=== PATIENT | female | born 1970 | race Caucasian/White ===

== ENCOUNTER → 2017-08-24 | Outpatient (CLI) | payer SELFPAY | LOC: GMAL 10:48 | PROVIDERS: ATTEND Family Medicine | DX: N39.0 Urinary tract infection, site not specified (principal) ==

== ENCOUNTER → 2018-06-27 | Outpatient (CLI) | payer OTHER | LOC: LAB.O 13:24 | PROVIDERS: ATTEND Nurse Practitioner Family | DX: R07.9 Chest pain, unspecified (principal) ==

== ENCOUNTER 2018-12-04 10:14 | Emergency (ER) | payer OTHER ==
[2018-12-04] MEDS ORDERED: ASPIRIN TABLET 325 MG TAB PO ONE (10:26)
[2018-12-04] MEDS ORDERED: ALUM & MAG HYDROX-SIMETHICONE 30 ML, LIDOCAINE VISCOUS 2% 15 ML PO ONE ×2 (10:26)
[2018-12-04] MEDS ORDERED: LIDOCAINE HCL 2% (MOUTH-THROAT) 15 ML UD ONE (10:28)
[2018-12-04] MEDS ORDERED: ALUM & MAG HYDROX-SIMETHICONE 30 ML UD ONE (10:28)
--- NOTE | 2018-12-04 10:29 | ED.PDOC ---
History of Present Illness - General Chief Complaint: Chest Pain/NE Stated Complaint: chest pain Time Seen by Provider: 12/04/18 10:19 Source: patient Exam Limitations: no limitations - History of Present Illness Initial Comments: the patient is a 48-year-old female presenting to the emergency room secondary to chest pain that started about 20 hours ago, yesterday while she was [facility]. It is not made worse with movement or aerobic activity. No significant shortness of breath. No nausea or vomiting. Questionable low-grade fever. No previous chest pain. No previous cardiac history. She does take blood pressure medication. No syncope or near-syncope. No radiation. She reports that the pain is and has been a constant 7 out of 10. However she did sleep well last night without any difficulty. She does not appear to be any significant distress. She did report some palpitations yesterday. Timing/Duration: other Severity: moderate Improving Factors: nothing Worsening Factors: nothing Associated Symptoms: chest pain Allergies/Adverse Reactions: Allergies NO KNOWN ALLERGY Allergy (Verified 04/04/15 07:41) Home Medications: Ambulatory Orders Losartan Potassium & Hydrochlo [Losartan Potassium/Hydroc 100-12.5 mg] 1 tab PO DAILY 12/04/18 Review of Systems - Review of Systems Constitutional: States: no symptoms reported EENTM: States: no symptoms reported Respiratory: States: no symptoms reported Cardiology: States: chest pain, palpitations Gastrointestinal/Abdominal: States: no symptoms reported Genitourinary: States: no symptoms reported Musculoskeletal: States: no symptoms reported Skin: States: no symptoms reported Neurological: States: no symptoms reported Endocrine: States: no symptoms reported Hematologic/Lymphatic: States: no symptoms reported All other Systems: No Change from Baseline Past Medical History (General) - Patient Medical History Hx Stroke: No Hx Cardiac Disorders: No Hx Congestive Heart Failure: No Hx Hypertension: Yes Hx Diabetes: No Hx MRSA: No Surgical History: cholecystectomy, other - Vaccination History Hx Influenza Vaccination: No - Social History Hx Tobacco Use: No Family Medical History - Family History Father Living Status: Still Living Hx Cardiac Disease: Yes Hx Family Diabetes: Yes Physical Exam - Physical Exam General Appearance: Alert, Comfortable, No apparent distress Eye Exam: bilateral normal Ears, Nose, Throat: hearing grossly normal, normal ENT inspection Neck: full range of motion, supple Respiratory: lungs clear, normal breath sounds, no respiratory distress, no accessory muscle use Cardiovascular/Chest: normal peripheral pulses, regular rate, rhythm, no edema Peripheral Pulses: radial,right: 2+, radial,left: 2+ Gastrointestinal/Abdominal: non tender, soft Rectal Exam: deferred Back Exam: no CVA tenderness, no vertebral tenderness Extremity: non-tender, normal inspection, no pedal edema, normal capillary refill 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 The patient has multiple cardiac risk factors including hypertension, obesity and a very strong cardiac family history. Nitroglycerin, morphine, GI cocktail, potassium have all failed to improve the chest discomfort. She did have significant hypokalemia but has since received 2 large doses of potassium which again has failed to improve the symptoms. No significant arrhythmia has been noted here. She is receiving a dose of aspirin and Lovenox. She is receiving a dose of Rocephin for urinary tract infection. The patient will be transferred to [facility] for cardiology evaluation as I cannot say with any certainty that this is not cardiac in origin. She will need a repeat potassium level along with repeat enzymes. Consideration could be given to a CRP and ESR as well at the next blood draw. Transferring for specialty care and higher level of care. Acceptance of transfer is appreciated. noman sol [id number] - Results/Orders Results/Orders: chest x-ray shows no acute pathology. See details in the report. EKG shows normal sinus rhythm at 68 bpm. She has scattered inverted P waves. No previous EKG for comparison. She does have slow R-wave progression in anterior leads. No wandering baseline. No scattered ST segment changes consistent with ischemia or inflammatory conditions. Normal QT interval. Normal axis. Overall borderline low voltage. Laboratory Tests 12/04/18 12/04/18 12/04/18 10:40 10:40 10:40 WBC 8.7 RBC 4.02 L Hgb 12.1 Hct 35.8 L MCV 89.0 MCH 30.1 MCHC 33.8 RDW 13.4 Plt Count 270 MPV 8.8 Absolute Neuts (auto) 6.40 Absolute Lymphs (auto) 1.60 Absolute Monos (auto) 0.50 Absolute Eos (auto) 0.10 Absolute Basos (auto) 0.00 Neutrophils % 73.3 Lymphocytes % 18.5 L Monocytes % 6.3 Eosinophils % 1.4 Basophils % 0.5 PT 10.9 INR 1.09 PTT (SP) 29.9 D-Dimer, Quantitative 0.26 Sodium 137 Potassium 2.9 L Chloride 99 L Carbon Dioxide 22 Anion Gap 18.9 H BUN 9 Creatinine 0.74 BUN/Creatinine Ratio 12.2 Random Glucose 130 H Serum Osmolality 274.3 L Calcium 8.7 Magnesium 2.0 Total Bilirubin 0.7 AST 25 ALT 26 Alkaline Phosphatase 54 Creatine Kinase 106 CK-MB (CK-2) 0.6 CK-MB (CK-2) % Not Reportable Troponin I 0.00 B-Natriuretic Peptide 5.8 Serum Total Protein 7.7 Albumin 3.9 Globulin 3.8 H Albumin/Globulin Ratio 1.0 L TSH 0.83 Urine Color Urine Appearance Urine pH Ur Specific Eldena Urine Protein Urine Glucose (UA) Urine Ketones Urine Blood Urine Nitrite Urine Bilirubin Urine Urobilinogen Ur Leukocyte Esterase Urine RBC Urine WBC Ur Epithelial Cells Amorphous Sediment Urine Bacteria Urine HCG, Qual 12/04/18 12/04/18 12/04/18 11:02 11:16 13:35 WBC RBC Hgb Hct MCV MCH MCHC RDW Plt Count MPV Absolute Neuts (auto) Absolute Lymphs (auto) Absolute Monos (auto) Absolute Eos (auto) Absolute Basos (auto) Neutrophils % Lymphocytes % Monocytes % Eosinophils % Basophils % PT INR PTT (SP) D-Dimer, Quantitative Sodium Potassium Chloride Carbon Dioxide Anion Gap BUN Creatinine BUN/Creatinine Ratio Random Glucose Serum Osmolality Calcium Magnesium Total Bilirubin AST ALT Alkaline Phosphatase Creatine Kinase 110 CK-MB (CK-2) 0.6 CK-MB (CK-2) % Not Reportable Troponin I < 0.02 B-Natriuretic Peptide Serum Total Protein Albumin Globulin Albumin/Globulin Ratio TSH Urine Color Yellow Urine Appearance Clear Urine pH 6.0 Ur Specific Eldena 1.015 Urine Protein Negative Urine Glucose (UA) Negative Urine Ketones Negative Urine Blood Trace-lysed H Urine Nitrite Negative Urine Bilirubin Negative Urine Urobilinogen 0.2 Ur Leukocyte Esterase Moderate H Urine RBC 0-1 Urine WBC >50 H Ur Epithelial Cells 20-30 Amorphous Sediment 1+ Urine Bacteria 1+ Urine HCG, Qual Negative Departure - Departure Clinical Impression: Hypokalemia, Cystitis Chest pain Qualifiers: Chest pain type: unspecified Qualified Code(s): R07.9 - Chest pain, unspecified Disposition: Transfer to Hospital Departure Forms: ED Discharge - Pt. Copy, Patient Portal Self Enrollment Instructions: DI for Chest Pain Referrals: Timothy Chaney III, MD [Primary Care Provider] - 1-2 Weeks Home Medications: Ambulatory Orders Losartan Potassium & Hydrochlo [Losartan Potassium/Hydroc 100-12.5 mg] 1 tab PO DAILY 12/04/18 Transfer to Outside Facility - Transfer Information Decision to Transfer Date: 12/04/18 Decision to Transfer Time: 14:37 Reason for Transfer: required specialist not available Accepting Provider:: dr adams Accepting Facility: [facility]
--- NOTE | 2018-12-04 11:04 | RAD ---
EXAM DESCRIPTION: Chest,2 Views CLINICAL HISTORY: 48 years Female, chest pain 20 hours COMPARISON: 06/25/2018 FINDINGS: Heart size and pulmonary vessels are within normal limits. There is no pneumothorax or pleural effusion. The lungs are clear bilaterally. The soft tissues are unremarkable. No acute osseous findings. Surgical clips overlie the left neck. IMPRESSION: No acute cardiopulmonary abnormality. Electronically signed by: Tom Dorado MD 12/04/2018 11:02 AM CDT
[2018-12-04] MEDS ORDERED: POTASSIUM CHLORIDE ELIXIR 20 MEQ/15 ML UD PO ONE ×2 (11:18→14:22)
[2018-12-04] MEDS ORDERED: cefTRIAXone SODIUM 1 GM in SODIUM CHL 0.9% 50ML MIN-BAG+ 50 ML IVPB ONE (11:41)
[2018-12-04] MEDS ORDERED: cefTRIAXone SODIUM 1 GM VIAL ONE (11:43)
[2018-12-04] MEDS ORDERED: SODIUM CHL 0.9% 50ML MIN-BAG+ 50 ML IVPB ONE (11:43)
[2018-12-04] MEDS ORDERED: NITROGLYCERIN 0.4 MG 25 EA TAB SL ONE (13:52)
[2018-12-04] MEDS ORDERED: MORPHINE SULFATE INJ 10 MG/ML VIAL IV ONE (14:21)
[2018-12-04] MEDS ORDERED: ENOXAPARIN SODIUM 100 MG/ML SYG SUBCU ONE (14:40)
[2018-12-04 15:18] VITALS: BP 110/65; O2SAT 98
[2018-12-04 19:29] VITALS: TEMP 98.5
== END 2018-12-04 15:45 | disposition short-term general hospital (02) ==
LOC: ER 10:14
DX: R07.9 Chest pain, unspecified (principal); N30.90 Cystitis, unspecified without hematuria; E87.6 Hypokalemia; R00.2 Palpitations; I10 Essential (primary) hypertension; E66.9 Obesity, unspecified; Z79.899 Other long term (current) drug therapy; Z82.49 Family history of ischemic heart disease and other diseases of the circulatory system; Z68.37 Body mass index [BMI] 37.0-37.9, adult
CPT/HCPCS: 36415; 71046; 80053; 81001; 81025; 82550; 82553; 83735; 83880; 84443; 84484; 85025; 85379; 85610; 85730; 87086; 93005; J0696; J1650; J2270; J7050

== ENCOUNTER → 2018-12-12 | Outpatient (CLI) | payer OTHER | LOC: GMAL 16:36 | PROVIDERS: ATTEND Family Medicine | DX: D51.8 Other vitamin B12 deficiency anemias (principal); D50.8 Other iron deficiency anemias; R53.82 Chronic fatigue, unspecified ==

== ENCOUNTER 2018-12-29 10:07 | Emergency (ER) | payer OTHER ==
--- NOTE | 2018-12-29 10:40 | ED.PDOC ---
History of Present Illness - General Chief Complaint: Respiratory Problem Stated Complaint: shortness of breath Time Seen by Provider: 12/29/18 10:36 - History of Present Illness Initial Comments: c/o having sob , more on exertion with chest tightness since this morning , no chest pain or wheezing Timing/Duration: 1-3 hours Severity: mild Improving Factors: nothing Worsening Factors: nothing Associated Symptoms: shortness of breath Allergies/Adverse Reactions: Allergies NO KNOWN ALLERGY Allergy (Verified 04/04/15 07:41) Home Medications: Ambulatory Orders Escitalopram [Lexapro] 10 mg PO DAILY 12/29/18 Furosemide Tab [Lasix] 20 mg PO BID #10 tab 12/29/18 Potassium Chloride [K-Tab] 10 meq PO DAILY 12/29/18 Telmisartan 80 mg PO DAILY 12/29/18 levoFLOXacin [Levaquin] 500 mg PO DAILY #10 tab 12/29/18 Review of Systems - Review of Systems Constitutional: States: no symptoms reported EENTM: States: no symptoms reported Respiratory: States: short of breath Cardiology: States: no symptoms reported Gastrointestinal/Abdominal: States: no symptoms reported Genitourinary: States: no symptoms reported Musculoskeletal: States: no symptoms reported Skin: States: no symptoms reported Neurological: States: no symptoms reported Endocrine: States: no symptoms reported Hematologic/Lymphatic: States: no symptoms reported All other Systems: Reviewed and Negative Past Medical History (General) - Patient Medical History Hx Stroke: No Hx Cardiac Disorders: No Hx Congestive Heart Failure: No Hx Hypertension: Yes Hx Diabetes: No Hx MRSA: No Surgical History: cholecystectomy - Vaccination History Hx Influenza Vaccination: Yes - Social History Hx Tobacco Use: Yes Family Medical History - Family History Father Living Status: Still Living Hx Cardiac Disease: Yes Hx Family Diabetes: Yes Physical Exam - Physical Exam General Appearance: Alert, Comfortable Eye Exam: bilateral normal Ears, Nose, Throat: hearing grossly normal, normal ENT inspection Neck: full range of motion, supple, normal inspection Cardiovascular/Chest: regular rate, rhythm, no edema, no gallop, no JVD, no murmur Back Exam: normal inspection, no CVA tenderness, no vertebral tenderness Extremity: normal range of motion, non-tender, normal inspection, no pedal edema Neurologic: no motor/sensory deficits, alert, normal mood/affect, oriented x 3 Skin Exam: normal color Lymphatic: no adenopathy Progress - Progress Progress: 12/29/18 15:34 Case discuss with hospitalist for the admission and further cardiac work up but as pt is currently asymptomatic and not desaturating on walking also and feels better after giving lasix , will discharge the pt home and follow up with cardiology - Results/Orders Results/Orders: 12/29/18 10:42 Sodium Chloride 0.9% (Flush) [Saline Flush Syringe] 10 ml IV PRN PRN EKG Stat Pulse Ox Stat 12/29/18 14:54 CARDIAC PANEL,ER Stat Laboratory Results WBC 7.5 K/mm3 (4.8-10.8) 12/29/18 10:54 RBC 3.66 M/mm3 (4.20-5.40) L 12/29/18 10:54 Hgb 10.9 gm/dL (12.0-16.0) L 12/29/18 10:54 Hct 33.1 % (36.0-47.0) L 12/29/18 10:54 MCV 90.4 fl (81.0-99.0) 12/29/18 10:54 MCH 29.8 pg (27.0-31.0) 12/29/18 10:54 MCHC 33.0 g/dL (33.0-37.0) 12/29/18 10:54 RDW 14.0 % (11.5-14.5) 12/29/18 10:54 Plt Count 247 K/mm3 (130-400) 12/29/18 10:54 MPV 9.1 fl (7.40-10.4) 12/29/18 10:54 Absolute Neuts (auto) 5.20 K/uL (1.8-6.8) 12/29/18 10:54 Absolute Lymphs (auto) 1.50 K/uL (1.0-3.4) 12/29/18 10:54 Absolute Monos (auto) 0.60 K/uL (0.2-0.8) 12/29/18 10:54 Absolute Eos (auto) 0.20 K/uL (0.0-0.4) 12/29/18 10:54 Absolute Basos (auto) 0.00 K/uL (0.0-0.1) 12/29/18 10:54 Neutrophils % 69.5 % (42.0-78.0) 12/29/18 10:54 Lymphocytes % 19.3 % (20.0-50.0) L 12/29/18 10:54 Monocytes % 7.8 % (2.0-9.0) 12/29/18 10:54 Eosinophils % 2.8 % (1.0-5.0) 12/29/18 10:54 Basophils % 0.6 % (0.0-2.0) 12/29/18 10:54 PT 11.4 SECONDS (9.0-10.9) H 12/29/18 10:54 INR 1.14 (0.9-1.15) 12/29/18 10:54 PTT (SP) 28.0 SECONDS (21.8-31.6) 12/29/18 10:54 D-Dimer, Quantitative 0.84 mg/L FEU (0-0.49) H* 12/29/18 10:54 Sodium 139 mmol/L (135-145) 12/29/18 10:54 Potassium 3.5 mmol/L (3.6-5.0) L 12/29/18 10:54 Chloride 104 mmol/L (101-111) 12/29/18 10:54 Carbon Dioxide 24 mmol/L (21-31) 12/29/18 10:54 Anion Gap 14.5 (12-18) 12/29/18 10:54 BUN 9 mg/dL (7-18) 12/29/18 10:54 Creatinine 0.80 mg/dL (0.6-1.3) 12/29/18 10:54 BUN/Creatinine Ratio 11.3 (10-20) 12/29/18 10:54 Random Glucose 105 mg/dL (70-105) 12/29/18 10:54 Serum Osmolality 276.6 mOsm/L (275-295) 12/29/18 10:54 Calcium 8.6 mg/dL (8.4-10.2) 12/29/18 10:54 Magnesium 1.9 mg/dL (1.8-2.5) 12/29/18 10:54 Total Bilirubin 0.5 mg/dL (0.2-1.0) 12/29/18 10:54 Direct Bilirubin 0.2 mg/dL (0-0.2) 12/29/18 10:54 Indirect Bilirubin 0.3 mg/dL (0.2-0.8) 12/29/18 10:54 AST 23 IU/L (10-42) 12/29/18 10:54 ALT 42 IU/L (10-60) 12/29/18 10:54 Alkaline Phosphatase 62 IU/L (42-121) 12/29/18 10:54 Creatine Kinase 85 IU/L (26-140) 12/29/18 10:54 CK-MB (CK-2) 0.6 ng/mL (0.0-4.4) 12/29/18 10:54 CK-MB (CK-2) % Not Reportable 12/29/18 10:54 Troponin I < 0.02 ng/mL (0.01-0.05) 12/29/18 15:04 B-Natriuretic Peptide 71.9 pg/ml (0-100) 12/29/18 15:04 Serum Total Protein 7.2 gm/dL (6.4-8.2) 12/29/18 10:54 Albumin 3.7 g/dl (3.2-5.5) 12/29/18 10:54 - EKG/XRAY/CT EKG: Sinus Departure - Departure Clinical Impression: Congestive cardiac failure, Pleural effusion, Pulmonary edema, SOB (shortness of breath) Disposition: Discharge to Home or Self Care Departure Forms: ED Discharge - Pt. Copy, Patient Portal Self Enrollment Referrals: Timothy Chaney III, MD [Primary Care Provider] - 1-2 Weeks Prescriptions: Furosemide Tab [Lasix] 20 mg PO BID #10 tab levoFLOXacin [Levaquin] 500 mg PO DAILY #10 tab Home Medications: Ambulatory Orders Escitalopram [Lexapro] 10 mg PO DAILY 12/29/18 Furosemide Tab [Lasix] 20 mg PO BID #10 tab 12/29/18 Potassium Chloride [K-Tab] 10 meq PO DAILY 12/29/18 Telmisartan 80 mg PO DAILY 12/29/18 levoFLOXacin [Levaquin] 500 mg PO DAILY #10 tab 12/29/18 Additional Instructions: Follow up with PCP in 1-2 days Refer to cardiology
[2018-12-29] MEDS ORDERED: SODIUM CHLORIDE 0.9% (FLUSH) 10 ML SYG IV PRN (10:42)
[2018-12-29] MEDS ORDERED: IPRATROPIUM/ALBUTEROL 3 ML VIAL NEB ONE ×2 (10:52→12:52)
--- NOTE | 2018-12-29 13:20 | CT ---
PROCEDURE: CT Angiography Chest With Intravenous Contrast CLINICAL INDICATION: The patient is 48 years years old, Female; sob TECHNIQUE: Axial computed tomographic angiography images of the chest with intravenous contrast. Sagittal and coronal reformatted images were created and reviewed. This CT exam was performed using one or more of the following dose reduction techniques: automated exposure control, adjustment of the mA and/or kV according to patient size, and/or use of iterative reconstruction technique. MIP reconstructed images were created and reviewed. COMPARISON: No relevant prior studies available. FINDINGS: PULMONARY ARTERIES: Evaluation of the pulmonary arterial vessels demonstrates no CT evidence of acute pulmonary embolus. There is no evidence of right to left interventricular septal bowing. AORTA: No evidence of aortic aneurysm or dissection. LUNGS: There are diffuse groundglass opacities bilaterally which may indicate pulmonary edema. In conjunction with pleural effusions, findings are concerning for fluid overload/congestive heart failure. There is a 2 mm noncalcified nodule in the right middle lobe (series CT 2, image 67) Fleischner Society Guidelines (MacMahon, et al. Radiology 2017; 284(1):228-43) suggest the following. For low-risk patients, no follow-up is necessary. For high-risk patients (smoking history or other known risk factors) an optional chest CT at 12 months could be performed. There is patchy subsegmental atelectasis. PLEURAL SPACE: There are bilateral simple pleural effusions which layer to the apices with a dependent interpleural distance of up to 3.5 cm AP on the right and up to 3.2 cm AP on the left with associated adjacent compressive atelectasis. HEART: unremarkable No cardiomegaly. No significant pericardial effusion. No evidence of RV dysfunction. THYROID: A tiny hypodensity in the left lobe of the thyroid gland requires no follow-up. BONES/JOINTS: There are diffuse enthesopathic changes, including a rolling pattern of ossification in the spine, consistent with diffuse idiopathic skeletal hyperostosis (DISH). SOFT TISSUES: Unremarkable. LYMPH NODES: Unremarkable. No enlarged hilar, mediastinal, or axillary lymph nodes. SPLEEN: The spleen is enlarged, measuring 13.2 cm. IMPRESSION: 1. No evidence of acute pulmonary emboli. 2. Congestive heart failure with moderate bilateral pleural effusions with groundglass opacification in the lungs likely reflecting pulmonary edema. Infection is not excluded. 3. Mild splenomegaly probably due to congestive heart failure. Other differential. First image considerations include portal hypertension, infectious/inflammatory conditions, and hematologic diseases such as anemias and extra medullary hematopoiesis. Neoplasia, storage diseases and sequestration also in the differential but much less likely. Portal or splenic vein thrombosis also in the differential, although not evaluated on this study of the CT chest. Electronically signed by: Eliza Pearson MD 12/29/2018 1:18 PM ADMITTING COUNSELOR
--- NOTE | 2018-12-29 13:22 | RAD ---
EXAM DESCRIPTION: Chest,1 View CLINICAL HISTORY: 48 years Female sob COMPARISON: Two-view chest dated 12/04/2018 TECHNIQUE: Portable AP view of the chest is obtained. FINDINGS IN THE CHEST: Heart: Allowing for magnification factors related to AP portable technique and body habitus, the heart is mildly enlarged. Vasculature: [] There is no evidence of aortic aneurysm or acute findings. There is central pulmonary vascular congestion. [] Mediastinum: No evidence of mass or adenopathy. Lungs: Groundglass opacification in the right lung and left lower lung probably reflects pulmonary edema in conjunction with pleural effusions and cardiomegaly. Layering pleural fluid could also produce this appearance. Infection is not excluded. Pleura: There is blunting of the bilateral costophrenic angles suggesting bilateral pleural effusions. There are no pneumothoraces. Osseous structures: No evidence of acute fracture or other significant osseous abnormalities. There are diffuse enthesopathic changes, including a rolling pattern of ossification in the spine, consistent with diffuse idiopathic skeletal hyperostosis (DISH). [] Tubes and catheters: None Chest wall: Unremarkable. Visualized Abdomen: Unremarkable. IMPRESSION: Suspect congestive heart failure. Groundglass opacification in the right lung and left lower lung probably reflects pulmonary edema in conjunction with pleural effusions and cardiomegaly. Infection is not excluded. Remainder of findings as described above. Electronically signed by: Eliza Pearson MD 12/29/2018 1:20 PM [employer]ENTICE
[2018-12-29] MEDS ORDERED: FUROSEMIDE INJ 40 MG/4 ML VIAL IV ONE (14:12)
[2018-12-29 15:47] VITALS: BP 160/71; TEMP 97.8; O2SAT 97
== END 2018-12-29 15:48 | disposition home or self-care (01) ==
LOC: ER 10:07
DX: I50.9 Heart failure, unspecified (principal); I50.1 Left ventricular failure, unspecified; I11.0 Hypertensive heart disease with heart failure; Z87.891 Personal history of nicotine dependence; Z79.899 Other long term (current) drug therapy
CPT/HCPCS: 36415; 71045; 71275; 80048; 80076; 82550; 82553; 83880; 84484; 85025; 85379; 85610; 85730; 93005; 94640; 94760; J1940; J7620

== ENCOUNTER → 2019-01-14 | Outpatient (CLI) | payer OTHER | LOC: GMAL 11:38 | PROVIDERS: ATTEND Family Medicine | DX: D50.8 Other iron deficiency anemias (principal); R53.82 Chronic fatigue, unspecified; I10 Essential (primary) hypertension; I50.89 Other heart failure; Z79.899 Other long term (current) drug therapy ==

== ENCOUNTER 2019-03-16 12:47 | Emergency (ER) | payer OTHER ==
[2019-03-16] MEDS ORDERED: SODIUM CHLORIDE 0.9% (FLUSH) 10 ML SYG IV PRN (12:48)
--- NOTE | 2019-03-16 13:22 | RAD ---
EXAM DESCRIPTION: XR Chest,1 View CLINICAL HISTORY: 48 years Female, sob COMPARISON: December 29, 2018. FINDINGS: Heart size appears borderline, although accentuated by technique. Possible minimal uncoiling of the thoracic aorta. The lungs appear essentially clear, with improvement in the apparent congestive changes and small pleural effusions since last exam. No obvious pneumothorax is identified on this upright portable film. No acute regional bony changes are identified. There are small metallic clips in the left lower neck. IMPRESSION: No radiographic evidence of acute cardiopulmonary disease. Improvement since last exam. Electronically signed by: Omar Almeida MD 03/16/2019 1:20 PM [facility]
[2019-03-16] MEDS ORDERED: MORPHINE SULFATE INJ 10 MG/ML VIAL IV ONE (14:47)
[2019-03-16] MEDS ORDERED: ASPIRIN TABLET 325 MG TAB PO ONE (14:48)
[2019-03-16] MEDS ORDERED: FAMOTIDINE IV PREMIX 20 MG in PREMIX BAG 1 BAG IVPB ONE (15:05)
[2019-03-16] MEDS ORDERED: FAMOTIDINE IV PREMIX 50 ML IVPB ONE (15:15)
[2019-03-16] MEDS ORDERED: DICYCLOMINE HCL INJ 20 MG/2 ML AMP IM ONE (15:49)
[2019-03-16] MEDS ORDERED: ONDANSETRON INJ 4 MG/2 ML VIAL IV ONE (15:50)
[2019-03-16] MEDS ORDERED: PANTOPRAZOLE SODIUM IV 40 MG VIAL IV ONE (15:59)
--- NOTE | 2019-03-16 16:20 | ED.PDOC ---
History of Present Illness - General Chief Complaint: Chest Pain/VA Stated Complaint: Chest discomfort Time Seen by Provider: 03/16/19 12:48 - History of Present Illness Initial Comments: c/o having sub sternal chest pain for few hours 7/10 pressure like radiating to the back and L arm , no nausea or vomiting or , dizziness or sob Timing/Duration: 4-6 hours Improving Factors: nothing Worsening Factors: nothing Associated Symptoms: chest pain Allergies/Adverse Reactions: Allergies NO KNOWN ALLERGY Allergy (Verified 04/04/15 07:41) Home Medications: Ambulatory Orders Escitalopram [Lexapro] 10 mg PO DAILY 12/29/18 Furosemide Tab [Lasix] 20 mg PO BID #10 tab 12/29/18 Potassium Chloride [K-Tab] 10 meq PO DAILY 12/29/18 RX: Telmisartan 80 mg PO DAILY 12/29/18 Review of Systems - Review of Systems Constitutional: States: no symptoms reported EENTM: States: no symptoms reported Respiratory: States: no symptoms reported Cardiology: States: no symptoms reported, see HPI Gastrointestinal/Abdominal: States: no symptoms reported Genitourinary: States: see HPI Musculoskeletal: States: no symptoms reported Skin: States: no symptoms reported Neurological: States: no symptoms reported Past Medical History (General) - Patient Medical History Hx Stroke: No Hx Cardiac Disorders: No Hx Congestive Heart Failure: Yes Hx Hypertension: Yes Hx Diabetes: No Hx MRSA: No Surgical History: cholecystectomy - Vaccination History Hx Influenza Vaccination: Yes - 2018 Hx Pneumococcal Vaccination: No - Social History Hx Tobacco Use: Yes - Quit 2014 Hx Alcohol Use: No Family Medical History - Family History Father Living Status: Still Living Hx Cardiac Disease: Yes Hx Family Diabetes: Yes Physical Exam - Physical Exam General Appearance: Alert Ears, Nose, Throat: hearing grossly normal, normal ENT inspection Neck: non-tender, full range of motion, supple Respiratory: lungs clear, normal breath sounds, no respiratory distress, no accessory muscle use Cardiovascular/Chest: regular rate, rhythm, no edema, no gallop, no JVD Gastrointestinal/Abdominal: non tender, soft Back Exam: normal inspection Extremity: normal inspection Neurologic: outbound call center representative II-XII nml as tested, no motor/sensory deficits, alert, normal mood/affect, oriented x 3 Progress - Progress Progress: 03/16/19 16:30 During the stay in the ER pt developed epigastric pain associated with nausea - Results/Orders Results/Orders: Case d/w urologist Dr Kraft and he says to discharge the pt and follow up tomorrow in the clinic at 1 o clock 03/16/19 12:48 IV Care:Saline Lock per Protoc QSHIFT Telemetry ONCE Sodium Chloride 0.9% (Flush) [Saline Flush Syringe] 3 ml IV PRN PRN Oxygen Stat 03/16/19 13:00 EKG STAT 03/16/19 15:04 EKG Assessment ONCE 03/16/19 15:15 EKG STAT 03/17/19 09:00 Pulse Ox Daily Laboratory Results WBC 8.0 K/mm3 (4.8-10.8) 03/16/19 12:55 RBC 3.86 M/mm3 (4.20-5.40) L 03/16/19 12:55 Hgb 11.6 gm/dL (12.0-16.0) L 03/16/19 12:55 Hct 34.4 % (36.0-47.0) L 03/16/19 12:55 MCV 89.1 fl (81.0-99.0) 03/16/19 12:55 MCH 29.9 pg (27.0-31.0) 03/16/19 12:55 MCHC 33.6 g/dL (33.0-37.0) 03/16/19 12:55 RDW 14.3 % (11.5-14.5) 03/16/19 12:55 Plt Count 269 K/mm3 (130-400) 03/16/19 12:55 MPV 9.4 fl (7.40-10.4) 03/16/19 12:55 Absolute Neuts (auto) 5.10 K/uL (1.8-6.8) 03/16/19 12:55 Absolute Lymphs (auto) 2.10 K/uL (1.0-3.4) 03/16/19 12:55 Absolute Monos (auto) 0.50 K/uL (0.2-0.8) 03/16/19 12:55 Absolute Eos (auto) 0.20 K/uL (0.0-0.4) 03/16/19 12:55 Absolute Basos (auto) 0.10 K/uL (0.0-0.1) 03/16/19 12:55 Neutrophils % 63.6 % (42.0-78.0) 03/16/19 12:55 Lymphocytes % 26.2 % (20.0-50.0) 03/16/19 12:55 Monocytes % 6.4 % (2.0-9.0) 03/16/19 12:55 Eosinophils % 2.6 % (1.0-5.0) 03/16/19 12:55 Basophils % 1.2 % (0.0-2.0) 03/16/19 12:55 PT 10.9 SECONDS (9.0-10.9) 03/16/19 12:55 INR 1.10 (0.9-1.15) 03/16/19 12:55 PTT (SP) 29.6 SECONDS (21.8-31.6) 03/16/19 12:55 D-Dimer, Quantitative < 100 ng/ml (131-400) L 03/16/19 12:55 Sodium 136 mmol/L (135-145) 03/16/19 12:55 Potassium 3.3 mmol/L (3.6-5.0) L 03/16/19 12:55 Chloride 100 mmol/L (101-111) L 03/16/19 12:55 Carbon Dioxide 26 mmol/L (21-31) 03/16/19 12:55 Anion Gap 13.3 (12-18) 03/16/19 12:55 BUN 10 mg/dL (7-18) 03/16/19 12:55 Creatinine 0.69 mg/dL (0.6-1.3) 03/16/19 12:55 BUN/Creatinine Ratio 14.5 (10-20) 03/16/19 12:55 Random Glucose Not Reportable 03/16/19 12:55 Serum Osmolality 270.7 mOsm/L (275-295) L 03/16/19 12:55 Calcium 8.9 mg/dL (8.4-10.2) 03/16/19 12:55 Magnesium 2.0 mg/dL (1.8-2.5) 03/16/19 12:55 Total Bilirubin 0.4 mg/dL (0.2-1.0) 03/16/19 12:55 Direct Bilirubin Not Reportable 03/16/19 12:55 Indirect Bilirubin Not Reportable 03/16/19 12:55 AST 27 IU/L (10-42) 03/16/19 12:55 ALT 29 IU/L (10-60) 03/16/19 12:55 Alkaline Phosphatase 61 IU/L (42-121) 03/16/19 12:55 Creatine Kinase 128 IU/L (26-140) 03/16/19 12:55 CK-MB (CK-2) 0.5 ng/mL (0.0-4.4) 03/16/19 12:55 CK-MB (CK-2) % Not Reportable 03/16/19 12:55 Troponin I < 0.02 ng/mL (0.01-0.05) 03/16/19 15:00 B-Natriuretic Peptide 13.7 pg/ml (0-100) 03/16/19 12:55 Serum Total Protein 7.7 gm/dL (6.4-8.2) 03/16/19 12:55 Albumin 4.0 g/dl (3.2-5.5) 03/16/19 12:55 Globulin Cancelled 03/16/19 12:55 Albumin/Globulin Ratio Cancelled 03/16/19 12:55 Lipase 39 U/L (22-51) 03/16/19 13:00 - EKG/XRAY/CT EKG: Rodriguez, Sinus Departure - Departure Clinical Impression: Chest pain, Epigastric pain Time of Disposition: 16:20 Disposition: Discharge to Home or Self Care Condition: Good Departure Forms: ED Discharge - Pt. Copy, Patient Portal Self Enrollment Instructions: DI for Chest Pain Diet: resume usual diet Activity: increase activity as tolerated, walking as tolerated Referrals: Timothy Chaney III, MD [Primary Care Provider] - 1-2 Weeks Home Medications: Ambulatory Orders Escitalopram [Lexapro] 10 mg PO DAILY 12/29/18 Furosemide Tab [Lasix] 20 mg PO BID #10 tab 12/29/18 Potassium Chloride [K-Tab] 10 meq PO DAILY 12/29/18 RX: Telmisartan 80 mg PO DAILY 12/29/18
[2019-03-16 16:57] VITALS: BP 95/48; TEMP 97.3; O2SAT 97
== END 2019-03-16 16:56 | disposition home or self-care (01) ==
LOC: ER 12:47
DX: R07.2 Precordial pain (principal); R10.13 Epigastric pain; R00.1 Bradycardia, unspecified; R11.0 Nausea; I11.0 Hypertensive heart disease with heart failure; I50.9 Heart failure, unspecified; Z87.891 Personal history of nicotine dependence; Z90.49 Acquired absence of other specified parts of digestive tract; Z79.899 Other long term (current) drug therapy
CPT/HCPCS: 36415; 71045; 80048; 80076; 82550; 82553; 83690; 83880; 84484; 85025; 85379; 85610; 85730; 93005; J0500; J2270; J2405; J3490